=== PATIENT | female | born 1965 | race Caucasian/White ===

== ENCOUNTER 2023-05-02 07:59 | Emergency (ER) | payer MEDICAID, OTHER ==
[~2023-05-02] VITALS: Ht 152.4 cm; Wt 62.7 kg
[2023-05-02 08:14] VITALS: BP 135/79; PULSE 65; RESP 18; TEMP 98.7; O2SAT 96
== END 2023-05-02 09:47 | disposition home or self-care (01) ==
LOC: ER 07:59
DX: M25.511 Pain in right shoulder (principal); I10 Essential (primary) hypertension; E11.9 Type 2 diabetes mellitus without complications; Z88.0 Allergy status to penicillin; Z98.51 Tubal ligation status
CPT/HCPCS: 73030; 99283